=== PATIENT | male | born 1965 | race Caucasian/White ===

== ENCOUNTER 2022-09-10 07:52 | Day surgery (SDC) | payer SELFPAY ==
[2022-09-09 11:14] VITALS: BMI 28.2
--- NOTE | 2022-09-09 11:37 | ANES.PREANE2 ---
Pre-Anesthetic Assessment Height/Weight: Height 1.88 m Weight 99.79 kg Operation Date: 09/10/22 09:50 Proposed Procedures p left shoulder rotator cuff repair:84429,M75.102(Left) - David Hay DO Familial anesthetic complications: None Was Beta Angely taken within 24 hours: N/A Was Clonidine taken within 24 hours: N/A Last intake: > 8 hrs Social No alcohol and No tobacco Exam alert, oriented x 3, clear to auscultation bilaterally and regular rate & rhythm Airway Mallampati: Class III Dentition: full GI Gastroesophageal Reflux Disease Metabolic Hyperlipidemia Anesthetic Plan ASA status: 2 Anesthesia: General and Regional (specify below) Medications/Allergies Home Medications Medication Instructions Recorded Confirmed Last Taken Type omeprazole 20 mg capsule,delayed 20 mg PO DAILY 08/11/22 09/09/22 1 Day Ago History release ~09/08/22 lovastatin 20 mg tablet 20 mg PO DAILY 09/09/22 09/09/22 1 Day Ago History ~09/08/22 Allergies Allergy/AdvReac Type Severity Reaction Status Date / Time morphine Allergy ADR-Fatigue Verified 09/09/22 11:10 d Data Anesthesia Cardiac Studies: No Data to Display
[2022-09-10] VITALS (10 sets, daily range): BP systolic 82–122; BP diastolic 46–77; PULSE 54–76; RESP 16–18; TEMP 36.1–36.5; O2SAT 96–100
[2022-09-10] MEDS: sodium chloride 0.9% 1,000 ML 30 ML IV (08:16)
[2022-09-10] MEDS: ketorolac 30 mg/mL INJ IVP (08:16)
[2022-09-10] MEDS: acetaminophen 1,000 MG/100 ML PIGGYBACK 400 MG IV (08:17)
--- NOTE | 2022-09-10 08:42 | ANES.PAUD2 ---
Pre-Anesthetic Update Pre-Anesthetic Assessment: Date of Surgery/Procedure: 09/10/22 Preop Diagnosis: Left shoulder, AC joint arthritis, subacromial impingement, biceps tendinit Proposed Procedure: Operation Date: 09/10/22 09:20 Proposed Procedures p Shoulder Arthroscopy(Left) - David Otero, DO s Subacromial Decompression(Left) - David Satnam, DO s AC Joint Resection(Left) - David Satnam, DO s left shoulder diagnostic and surgical arthroscopy with rotator cuff repair, subacromial decompression,AC joint resection,possible biceps tenotomy,versus tenodesis,possible subscapularis repair:[id number],m75.102(Left) - David Hay, DO Any changes to Pre-Anesthetic Assessment?: No Last Intake: Intake Last Liquid Date 09/09/22 Last Liquid Time 22:30 Last Solid Date 09/09/22 Last Solid Time 22:30 Vitals: Temperature 97.0 F L 09/10/22 08:09 Temperature Source Temporal Artery S can 09/10/22 08:09 Pulse Rate 76 09/10/22 08:09 Respiratory Rate 16 09/10/22 08:09 Blood Pressure 122/77 09/10/22 08:09 Blood Pressure Vida n 92 09/10/22 08:09 Pulse Oximetry 98 09/10/22 08:09 Oxygen Delivery Me thod Room Air 09/10/22 08:11 Exam: Pre-Anes Outpt Exam: alert, oriented x 3, clear to auscultation bilaterally and regular rate & rhythm Cardiac Studies: No Data to Display
--- NOTE | 2022-09-10 08:42 | ANES.PROC ---
Anesthesia Procedures Procedure/Date: 09/10/22 Nerve Block ^: Nerve Block 1: Main Anesthesia: general anesthesia Time Out Performed: Yes Consent: requested by attending/covering physician, from patient, from other and risks and benefits reviewed Nerve block location: interscalene (L) Anesthesia monitors applied: pulse oximetry, EKG, BP cuff and oxygen Nerve block position: semi sitting Anesthetic Used: ropivicaine 0.5% (20 ml) and with decadron (3 mg) Ultrasound used to: recognize landmarks, visualize and ID brachial plexus, in supraclavicular region and visualize and ID interscalene groove Nerve Stimulator Used?: No Interscalene/Femoral BLK: 2 stimuplex 22 g needle used for position and inplane approach, visualize local anesthetic spread and no vascular puncture identified Patient Tolerated Procedure: well and no complications Complications: none Epidural: Epidural position: sitting
--- NOTE | 2022-09-10 10:27 | W.PM.OPSUD ---
Surgery/Procedure H&P Update DATE OF PROCEDURE: September 10, 2022 DATE H&P PERFORMED: 08/11/22 CHANGES TO PREVIOUS DOCUMENTATION: None. No changes in HPI from previous office visit on 08/11/2022. Reviewing of patient's MRI again patient has a left shoulder rotator cuff tear of the supraspinatus tendon as well as a potential partial tear of the subscapularis tendon. He has AC joint arthritis as well. He does have findings consistent with biceps tendinitis. We talked about the ins and outs of the procedure this point time he elects to proceed with surgical intervention. All questions answered. Plan to proceed with left shoulder diagnostic and surgical arthroscopy with rotator cuff repair, subacromial decompression, AC joint resection, biceps tenotomy versus tenodesis, possible subscapularis repair PREOP DIAGNOSIS: Left shoulder, AC joint arthritis, subacromial impingement, biceps tendinit PRIMARY INDICATION FOR PROCEDURE: Left shoulder AC joint arthritis, subacromial impingement, biceps tendinitis, rotator cuff tear PLANNED PROCEDURE: Operation Date: 09/10/22 09:20 Proposed Procedures p Shoulder Arthroscopy(Left) - David Isabella, DO s Subacromial Decompression(Left) - David Isabella, DO s AC Joint Resection(Left) - David Isabella, DO s left shoulder diagnostic and surgical arthroscopy with rotator cuff repair, subacromial decompression,AC joint resection,possible biceps tenotomy,versus tenodesis,possible subscapularis repair:[id number],m75.102(Left) - David Gamezatt, DO
[2022-09-10] MEDS: ceFAZolin 2,000 MG in sodium chloride 0.9% (plus) 50 ML 100 MG IV (10:36)
[2022-09-10] MEDS: EPINEPHrine 1 mg/mL INJ 2 MG XX (12:05)
--- NOTE | 2022-09-10 14:40 | P.OP_ITS ---
Brief Operative Note Date of procedure: 09/10/22 Pre-op diagnosis: Left shoulder rotator cuff tear, subscapularis tear, bicep t endon tear, lab Post-op diagnosis: same (Labral tearing, AC joint arthritis, subacromial impingement) Procedure Done: 1. Left shoulder diagnostic and surgical arthroscopy labral debridement 2. left shoulder diagnostic and surgical arthroscopy biceps tenodesis 3. Left shoulder diagnostic and surgical arthroscopy subscapularis tendon rep air 4. Left shoulder diagnostic and surgical arthroscopy subacromial decompression (bursectomy and acromioplasty) 5. Left shoulder diagnostic and surgical arthroscopy AC joint resection (distal clavicle excision) 6. Left shoulder diagnostic and surgical arthroscopy with rotator cuff tendon repair (large) Surgeon: David Hay Estimated blood loss (mL): 20 Complications: None Post-op Plan: Patient taken to PACU in stable condition recovering well. Will receive appropriate discharge instructions as well as pain medication postoperatively. Patient to follow-up postoperative rotator cuff repair protocol. Nonweightbearing to left upper extremity. Sling with abduction pillow on in place. Patient received regional anesthesia. We will follow-up in the orthopedic office in 2 weeks with plan for suture removal. Patient understands agrees with current plan. All questions answered. Condition: stable Disposition: same day Coding Level of Care Code Acute Code for Chg Fwd
--- NOTE | 2022-09-10 14:40 | P.OP_ITS ---
Operative Report Date of procedure: September 10, 2022 Pre-op diagnosis: Preop Diagnosis Left shoulder, AC joint arthritis, subacromial impingement, biceps tendinit Procedure: Post-op diagnosis: Left shoulder labral tear Left shoulder biceps tendon tear Left shoulder subscapularis tear Left shoulder rotator cuff tear large Left shoulder AC joint arthritis Left shoulder subacromial bursitis Procedure done: Left shoulder diagnostic and surgical arthroscopy with arthroscopic rotator cuff repair (large) Left shoulder diagnostic and surgical arthroscopy biceps tenodesis Left shoulder diagnostic and surgical arthroscopy labral debridement Left shoulder diagnostic and surgical arthroscopy acromioclavicular joint resection Left shoulder diagnostic and surgical arthroscopy subacromial decompression (acromioplasty and bursectomy) Left shoulder diagnostic and surgical arthroscopy with subscapularis tendon repair Surgeon: David Hay DO Estimated blood loss: 20 mL IV fluids: See anesthesia record Complications: None Condition: stable Disposition: same day Brief History: Patient been seen and worked up in the outpatient setting for left shoulder pain.? Pt had an MRI which showed rotator cuff tendon tear of the supraspinatus tendon as well as 30 to 50% tear of the subscapularis tendon. Biceps tendon pathology as well as AC joint arthritis. Patient's failed conservative treatment and has substantial weakness.? We talked about treatment options far as nonoperative and operative intervention..? We talked about risk benefits complication alternatives surgical nonsurgical treatment options.? Understanding risk of surgery he agrees to proceed with surgical intervention.? All questions have been answered at this time.? Patient elects proceed with surgery and consent obtained in office. Procedure: Patient seen evaluated in the preoperative holding area.? Consent reviewed and signed with patient.? Once again reviewed patient's MRI results as well as her planned surgical intervention.? Correct extremity marked.? Patient seen evaluated by anesthesia department received regional anesthesia.? Once ready for surgery was taken back to the operative suite.? Patient then subsequently underwent anesthesia per the anesthesia department was transported onto the OR table.? Patient was then placed into a lateral decubitus position with a beanbag and was appropriately secured to the bed.? All bony prominences well-padded.? Patient then had the left upper extremity was then prepped and draped in standard orthopedic fashion.? Patient received appropriate preoperative antib iotics.? Final timeout performed. The left upper extremity was then held in hanging from traction utilizing sterile technique.? Next started with standard diagnostic and surgical arthroscopy with posterior portal position introduced arthroscope into the glenohumeral joint.? Visualized the glenohumeral joint I then introduced a spinal needle within the rotator cuff interval to confirm appropriate anterior portal placement.? Once this was confirmed I then made my small incision and then introduced my arthroscopic shaver into the glenohumeral joint.? After thorough debridement was clearly evident patient had a significant erythema as well as positive liftoff sign of the biceps anchor and biceps tendon tear as it was pulled within the joint.? 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 Next I evaluated the subscapularis tendon which upper border 30-50% tear that would be amenable for repair of an upper border subscapularis tendon repair plan was to incorporate these 2 sutures of the biceps tenodesis and subscapularis tendon repair and do a single 475 swivel lock at the top of the intertubercular groove off of the upper border of the subscapularis tendon. As a result the Arthrex purple cannula was established anteriorly. I then utilizing thermal wand to open the rotator cuff interval. Once this was completed I then utilized Arthrex his loop and tack biceps tenodesis kit I subsequently passed the loop and tack through the biceps tendon creating a l uggage tag suture and then last of this around 2 times around the biceps tendon I then introduced the thermal wand and this was then subsequently tenotomized. I then with the thermal wand performed a labral debridement of circumferential labral tearing that was noted. Next I utilized a blunt probe to free up the adhesions off the anterior aspect of the subscapularis tendon off of the capsule so I had only subtle visualization of just the subscapularis tendon for appropriate passing of the scorpion suture passer. Once I was satisfied with my releases and evaluation of the upper border the subscapularis tendon I then subsequently utilized a fiber link suture this was then subsequently passed through luggage tag fashion and then an additional 2 passes was made through the upper border the subscapularis tendon to have appropriate control of the upper border subscapularis tendon repair. These were then both pulled out of the passport cannula loaded onto 475 swivel lock. Passport cannula was then advanced into appropriate position I then utilized a punch to appropriate depth and then under appropriate tension advance the 475 swivel lock into the punch hole maintaining appropriate tension and had excellent fixation. This completed the biceps tenodesis and upper border subscapularis tendon repair. ? I then subsequently utilized a a arthroscopic shaver and thermal wand to perf orm a labral debridement.? This point time I then visualized the glenohumeral joint.? The glenohumeral joint was found to have grade I chondromalacia throughout.? Infrapatellar pouch was free of loose bodies from viewing the posterior portal.? Next a visualized the rotator cuff superiorly and there was found to be a large tear of the supraspinatus tendon retracted to the glenohumeral joint at the medial aspect of the humeral head.? I utilized a spinal needle to radha this location.?? This completed my work within the glenohumeral joint all fluid was suctioned free of the joint.? ?Next I reintroduced the arthroscope posteriorly.? And went to the subacromial space.? I established my lateral working portal at the site of which my spinal needle was marking of the rotator cuff tear.? Thermal wand was then introduced laterally and then I subsequently performed extensive bursectomy of the subacromial space. Utilizing shaver I then evaluated the large rotator cuff tendon tear. Given the excellent visualization of the rotator cuff tendon tear as well as to prevent repair after fluid distention after AC joint I elected to repair the rotator cuff tendon next prior to completion of subacromial decompression and AC joint resection. Tissue grasper was used to assess the rotator cuff this did have appropriate tissue excursion and would be amendable to repair. There was a delamination component of the tear as well. At this point in time introduced the arthroscopic shaver debrided the rotator cuff tendon to stable tissue. ?I debrided the edges as well as decorticated the footprint of the rotator cuff insertion with my arthroscopic shaver.? Next introduced thermal wand to identify and radha my appropriate position for my bone anchors.? Tear was large in size and at this point time would be accommodating for Arthrex speed bridge technique.? Once my footprint was appropriately decorticated and prepared I then subsequently utilized a spinal needle for an accessory portal to place my anchors for medial row.? Once I like my position a small incision was made and a punch was then placed in appropriate position right off the articular margin first with my anterior and the next with my posterior anchors these were loaded with 2 Arthrex suture tapes.? These were impacted to appropriate depth.? Next these were sequentially withdrawn through the lateral portal and loaded on an Arthrex scorpion and were passed sequentially from anterior to posterior and pulled out the anterior portal.? Direct visualization was made to note that the each of the sutures did capture the appropriate delaminated piece to accommodate for appropriate repair of this as well. Next I then grabbed both sutures 1 and 3 in these were loaded into an Arthrex 4.75 swivel lock.? I then identified my appropriate position from the lateral anterior row anchor these were loaded punch was then placed and under appropriate tension free placement I advance my 4.75 Arthrex swivel lock.? Next I then loaded the sutures 2 and 4 into a Arthrex 4.75 swivel lock and subsequently utilizing my punch placed my lateral row posterior anchor in appropriate position being sure to not over tension the rotator cuff and lay this appropriately on its anatomic footprint.? Swivel lock was then advanced into appropriate position and had excellent fixation.? All excess suture was removed with arthroscopic cutter.? This completed my Arthrex speed bridge double row repair.? I then switched the arthroscope to the lateral portal to confirm this tension-free repair.? I took the shoulder through range of motion and the rotator cuff repair was stable and moved as a unit. Patient had a large anterior bone spur. Arthroscopic shaver was used to perform acromioplasty. At this point time I proceeded with my AC joint resection thermal wand was used and track to the anterior edge of the acromion and then tracked all the way to the AC joint.? Once identified the AC joint this was very arthritic in nature.? Thermal wand was placed anteriorly to establish appropriate plane for AC joint resection.? Once appropriate margins and anterior inferior and anterior capsule was released I then introduced arthroscopic shaver and a bur and performed AC joint resection of both the acromion to coplane at the AC joint and a distal clavicle resection was then performed totaling 1 cm in size and was confirmed.? This completed my AC joint resection I then introduced the arthroscopic shaver posteriorly to complete my subacromial decompression appropriate complaining all the way up to the lateral edge of the acromion.? This completed the surgery.? All fluid was suctioned from the shoulder.? All instruments were removed.? The lateral incision was then closed with 2-0 Vicryl and nylon stitches.? As well as the portal sites closed with portal nylon stitches.? Xeroform 4 x 4's ABD and tape was then applied to the left shoulder and was placed into a shoulder abduction pillow sling for rotator cuff repair.? Patient was then awakened from anesthesia and then taken back to PACU in stable condition.? Patient tolerated procedure without any issues. Disposition: Patient taken back in stable condition recovering well.? Dressings on in place clean dry and intact.? Will be nonweightbearing to the left upper extremity.? Follow rotator cuff repair protocol.? Patient to follow-up with me in the office in 2 weeks.? Patient will receive appropriate discharge instruction as well as pain medication postoperatively.? All questions answered.? We will contact the office for any questions or concerns.
--- NOTE | 2022-09-10 14:40 | PM.PACU ---
PACU note Narrative: Taken to PACU in stable condition pain controlled. Dressing on in place clean dry and intact. Patient received regional anesthesia unable to assess motor or sensory. Distal pulses are palpable hand warm well-perfused dressing clean dry and intact. Exam: awake Disposition: discharged
--- NOTE | 2022-09-10 16:20 | ANE.PACU2 ---
Inpatient post-anesthesia follow up: Airway intact: Yes Vital signs: Temperature 97.7 F Pulse Rate 58 Respiratory Rate 17 Blood Pressure 103/68 Pulse Oximetry 100 Oxygen Delivery Me thod Room Air Oxygen Flow Rate 6 Fraction of Inspir ed Oxygen Hydration adequate: Yes Nausea and vomiting: No Pain level: 1 Mental status: Baseline
== END 2022-09-10 17:07 | disposition home or self-care (01) ==
PROVIDERS: PCP Nurse Practitioner Family; Visit Provider Student in an Organized Health Care Education/Training Program
PROC: (CPT 29805; principal; 2022-09-10 09:00)
PROC: (CPT 29826; 2022-09-10 09:00)
PROC: 0RSH0ZZ Reposition Left Acromioclavicular Joint, Open Approach (ICD-10-PCS; CPT 29824; 2022-09-10 09:00)
PROC: (CPT 23405; 2022-09-10 09:00)
DX: M19.012 Primary osteoarthritis, left shoulder (principal); M75.102 Unspecified rotator cuff tear or rupture of left shoulder, not specified as traumatic; M75.42 Impingement syndrome of left shoulder; M75.22 Bicipital tendinitis, left shoulder; K21.9 Gastro-esophageal reflux disease without esophagitis; E78.5 Hyperlipidemia, unspecified
CPT/HCPCS: 29824; 29826; 29827; 29828; C1713; J0131; J0171; J0690; J1100; J1885; J2370; J2405; J2704; J2710; J2795; J3010; J3490; J7030

== ENCOUNTER 2022-10-01 06:00 | Outpatient (RCR) | payer SELFPAY | END 2022-10-03 23:59 | disposition home or self-care (01) | LOC: MPT 06:00 | PROVIDERS: Visit Provider Student in an Organized Health Care Education/Training Program | DX: Z47.89 Encounter for other orthopedic aftercare (principal) | CPT/HCPCS: 97110; 97161 ==

== ENCOUNTER 2022-10-04 06:00 | Outpatient (RCR) | payer SELFPAY | END 2022-11-03 23:59 | disposition home or self-care (01) | LOC: MPT 06:00 | PROVIDERS: Visit Provider Student in an Organized Health Care Education/Training Program | DX: Z47.89 Encounter for other orthopedic aftercare (principal) | CPT/HCPCS: 97110; 97140; 97530; G0283 ==

== ENCOUNTER 2022-11-04 06:00 | Outpatient (RCR) | payer SELFPAY | END 2022-12-04 23:59 | disposition home or self-care (01) | LOC: MPT 06:00 | PROVIDERS: Visit Provider Student in an Organized Health Care Education/Training Program | DX: Z47.89 Encounter for other orthopedic aftercare (principal) | CPT/HCPCS: 97110; 97140; 97530; G0283 ==

== ENCOUNTER 2022-12-05 06:00 | Outpatient (RCR) | payer SELFPAY | END 2023-01-03 23:59 | disposition home or self-care (01) | LOC: MPT 06:00 | PROVIDERS: Visit Provider Student in an Organized Health Care Education/Training Program | DX: Z47.89 Encounter for other orthopedic aftercare (principal) | CPT/HCPCS: 97110; G0283 ==

== ENCOUNTER → 2023-02-13 09:26 | Outpatient (BNVA) | payer SELFPAY | PROVIDERS: Visit Provider Student in an Organized Health Care Education/Training Program | DX: M25.511 Pain in right shoulder (principal); Z98.890 Other specified postprocedural states; M75.21 Bicipital tendinitis, right shoulder | CPT/HCPCS: 73030 ==

== ENCOUNTER 2023-12-11 09:34 | Inpatient (IN) | payer SELFPAY ==
[2023-12-11] VITALS (12 sets, daily range): BP systolic 101–137; BP diastolic 62–80; PULSE 68–88; RESP 16–20; TEMP 36.8–37.2; O2SAT 95–99; BMI 28.2
[2023-12-11 09:47] LABS: Charge for UA Resulting for Rev
--- NOTE | 2023-12-11 09:48 | ED_ITS ---
HPI - Abdominal Pain 2 General: Chief Complaint: Abdominal Pain Stated Complaint: RT abd pain Time Seen by Provider: 12/11/23 09:36 Source: patient and family Mode of arrival: ambulatory Limitations: no limitations History of Present Illness: Patient is a nice 58-year-old male presents to ED today along with his for evaluation of lower abdominal pain. 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 He states that the evening and into today pain has progressively worsened. He has not noticed any changes to his bowel movements. No urinary complaints. No flank pain. Previous abdominal surgeries include a cholecystectomy. He does have one previous history of pancreatitis that they thought was medication induced. He does not drink alcohol. He has not had any vomiting or fevers. MD elicited complaint: abdominal pain Pertinent past history: none Onset (ago): day(s) Pain Consistency: constant Location: RLQ Severity: severe Radiation: none Migration to: no migration Exacerbating factors: movement and other (palpation) Relieving factors: nothing Associated Symptoms: Denies change in bowel habits, chills, diarrhea, dysuria, fever(s), hematochezia, melena, nausea and vomiting Related Data Home Medications Medication Instructions Recorded Confirmed omeprazole 20 mg capsule,delayed 20 mg PO DAILY 08/11/22 12/11/23 release lovastatin 20 mg tablet 20 mg PO DAILY 09/09/22 12/11/23 acetaminophen 500 mg tablet 1,000 mg PO Q6H PRN Pain 12/11/23 12/11/23 naproxen 500 mg tablet 500 mg PO BID 12/11/23 12/11/23 pseudoephedrine HCl 120 mg 120 mg PO Q12H PRN Congestion 12/11/23 12/11/23 tablet,extended release sildenafil 100 mg tablet 50 - 100 mg PO DAILY PRN Erectile 12/11/23 12/11/23 Dysfunction terbinafine HCl 250 mg tablet 250 mg PO DAILY 12/11/23 12/11/23 Allergies Allergy/AdvReac Type Severity Reaction Status Date / Time morphine Allergy ADR-Fatigue Verified 02/13/23 09:33 d Review of Systems 2 Const: Denies: fever(s), chills, body aches, fatigue or malaise Card: Denies: chest pain Resp: Denies: dyspnea GI: Reports: abdominal pain; Denies: nausea, vomiting, diarrhea, change in bowel habits, hematochezia or melena : Denies: flank pain, difficulty urinating, dysuria, urinary frequency, urinary urgency or urinary hesitancy Musc: Denies: joint pain Skin/Breast: Denies: rash Neuro: Denies: headache(s) or dizziness PFSH ED 2 PFSH: Social History Smoking and tobacco/nicotine status: never used tobacco/nicotine Alcohol intake: current Alcohol intake frequency: holidays/special occasions only Physical Exam 2 Const: COMMON NORMALS: average body habitus, patient oriented x3, no limitations, healthy appearing, alert and well nourished GENERAL APPEARANCE: cooperative and in distress (appears uncomfortable secondary to pain) O RIENTATION/CONSCIOUSNESS: Yes awake, Yes oriented to person, Yes oriented to place and Yes oriented to time Eye: COMMON NORMALS: no scleral icterus Chest: COMMONS NORMALS: normal inspection of the chest and normal palpation of entire chest wall Resp: COMMON NORMALS: normal respiratory effort and clear to auscultation bilaterally AUSCULTATION: clear to auscultation bilaterally Cardio: COMMON NORMALS: regular rate and regular rhythm RATE: regular rate RHYTHM: regular rhythm GI: COMMON NORMALS: Normal to inspection, nondistended, normoactive bowel sounds present, Soft to palpation, No hepatosplenomegaly present and no masses INSPECTION: Yes normal to inspection AUSCULTATION: Yes normoactive bowel sounds PALPATION: Yes Soft to palpation, Yes Tenderness to palpation present (GI) (throughout lower abdomen R>L), Yes Guarding due to palpation present (GI), No Rigid due to palpation and Yes No hepatosplenomegaly present : COMMON NORMALS: Yes no CVA tenderness BLADDER/KIDNEY EXAM: Yes no CVA tenderness Back/Pelvis: COMMON NORMALS: no CVA tenderness and thoracic and lumbar spine normal to inspection Extremity: GENERAL: Yes normal exam except as noted Neuro: GERA COMA SCALE: document GCS findings [place] coma scale eye opening: Spontaneous [place] coma scale verbal response: Orientated [place] coma scale motor response: Obey commands [place] coma scale total score: 15 COMMON NORMALS: patient oriented x3, moves all extremities, no focal motor deficits, no sensory deficits noted and gait normal SENSORIUM/ORIENTATION: Yes alert, Yes oriented to person, Yes oriented to place and Yes oriented to time Skin: COMMON NORMALS: no rashes or lesions noted GENERAL SKIN EXAM: no rashes or lesions noted Course 2 Consultations: Consultation #1: Dr. Rand-agrees with IV fluids, NPO, Zosyn and he will consult on patient Consultation #2: Dr. Rojas-accepts hospitalization Vital Signs: Vital signs: Vital Signs Temperature 98.7 F 12/11/23 09:56 Pulse Rate 77 12/11/23 09:56 Respiratory Rate 18 12/11/23 09:56 Blood Pressure 135/79 12/11/23 09:56 Pulse Oximetry 96 12/11/23 09:56 Oxygen Delivery Me thod Room Air 12/11/23 09:56 MDM - Abdominal Pain Medical Decision Making Patient is a very nice 58-year-old male here for progressively worsening lower abdominal pain since yesterday. He was found to have acute sigmoid diverticulitis with perforation. He also was found to have a small bowel stricture. Have spoken with general surgeon, Dr. Rand who has reviewed CT imaging. Free air is contained at this time. He is requesting IV fluids, Zosyn, NPO, and admit to medicine. Spoke to Dr. Rojas who will accept hospitalization. Lab Data 12/11/23 09:53 12/11/23 09:53 Labs/Radiology: Radiology Impressions Abdomen/Pelvis CT 12/11/23 09:55 IMPRESSION: 1. Acute distal descending colon and sigmoid diverticulitis with perforation. There are numerous extraluminal foci of air contained within the fat surrounding the sigmoid colon. No abscess at this time. Significant pericolonic fat stranding and inflammation. 2. Additional small bowel stricture in the mid jejunum with spiculation. This will need to be further evaluated for possible neoplasm or inflammatory stricture. If this is not evaluated surgically recommend follow-up CT with IV and oral contrast in 2 to 3 months. 3. Fluid collections associated with the pancreatic tail and subcapsular spleen. 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 No adjacent inflammation. No prior studies documenting pancreatitis. These can also be reevaluated in 2 to 3-month follow-up CT for the jejunal stricture. 4. Prior cholecystectomy. Laboratory Results WBC 13.25 10^3/uL (3.29-11.43) H 12/11/23 09:53 RBC 4.31 10^6/uL (3.85-5.65) 12/11/23 09:53 Hgb 13.00 g/dL (11.27-16.99) 12/11/23 09:53 Hct 39.2 % (37-53) 12/11/23 09:53 MCV 91.0 fl (82-101) 12/11/23 09:53 MCH 30.2 pg (27-33) 12/11/23 09:53 MCHC 33.2 g/dL (30-55) 12/11/23 09:53 RDW 13.4 % (12.1-15.1) 12/11/23 09:53 Plt Count 178 10^3/cmm (157-399) 12/11/23 09:53 MPV 11.1 fL (7.4-10.4) H 12/11/23 09:53 Neut % (Auto) 78.3 % 12/11/23 09:53 Lymph % (Auto) 8.5 % 12/11/23 09:53 [place] % (Auto) 11.4 % 12/11/23 09:53 Eos % (Auto) 1.4 % 12/11/23 09:53 Baso % (Auto) 0.2 % 12/11/23 09:53 Neut # (Auto) 10.37 10^3/uL (1.8-7.7) H 12/11/23 09:53 Lymph # (Auto) 1.1 10^3/uL (0.8-4.8) 12/11/23 09:53 [place] # (Auto) 1.5 10^3/uL (0.2-0.9) H 12/11/23 09:53 Eos # (Auto) 0.2 10^3/uL (0.0-0.8) 12/11/23 09:53 Baso # (Auto) 0.0 10^3/uL (0.0-0.1) 12/11/23 09:53 Nucleated RBC % (auto) 0 % 12/11/23 09:53 Nucleated RBCs # 0.0 /100WBC 12/11/23 09:53 Sodium 138 mmol/L (136-145) 12/11/23 09:53 Potassium 4.2 mmol/L (3.5-5.1) 12/11/23 09:53 Chloride 106 mmol/L (98-107) 12/11/23 09:53 Carbon Dioxide 20 mmol/L (22-29) L 12/11/23 09:53 Anion Gap 16.2 (5-19) 12/11/23 09:53 BUN 21 mg/dL (8-23) 12/11/23 09:53 Creatinine 1.0 mg/dL (0.7-1.2) 12/11/23 09:53 GFR Calculation 76.2 mL/min (90-130) L 12/11/23 09:53 Glucose 117 mg/dL (65-115) H 12/11/23 09:53 Calculated Osmolality 290 mOsm/kg (285-295) 12/11/23 09:53 Calcium 8.2 mg/dL (8.5-10.5) L 12/11/23 09:53 Total Bilirubin 1.1 mg/dL (0.15-1.2) 12/11/23 09:53 AST 21 U/L (0-40) 12/11/23 09:53 ALT 20 U/L (0-41) 12/11/23 09:53 Alkaline Phosphatase 95 U/L (40-130) 12/11/23 09:53 Total Protein 6.4 g/dL (6.6-8.7) L 12/11/23 09:53 Albumin 3.7 g/dL (3.5-5.2) 12/11/23 09:53 Globulin 2.7 g/dL (1.3-4.6) 12/11/23 09:53 Lipase 20 U/L (13-60) 12/11/23 09:53 Urine Color Dark yellow (Yellow) A 12/11/23 09:44 Urine Appearance Clear (CLEAR) 12/11/23 09:44 Urine pH 7.0 (5-7) 12/11/23 09:44 Ur Specific [place] 1.036 (1.005-1.030) H 12/11/23 09:44 Urine Protein 1+ (Negative) A 12/11/23 09:44 Urine Glucose (UA) Negative (Normal) 12/11/23 09:44 Urine Ketones Trace (Negative) 12/11/23 09:44 Urine Blood Negative (Negative) 12/11/23 09:44 Urine Nitrate Negative (Negative) 12/11/23 09:44 Urine Bilirubin 1+ (Negative) H 12/11/23 09:44 Urine Urobilinogen 1.0 mg/dL (Negative) 12/11/23 09:44 Ur Leukocyte Esterase Trace (Negative) A 12/11/23 09:44 Urine RBC 5-10 /hpf (0-2) H 12/11/23 09:44 Urine WBC Rare /hpf (0-5) 12/11/23 09:44 Ur Squamous Epith Cells 0-4 /hpf (0-5) H 12/11/23 09:44 Amorphous Sediment Not Reportable 12/11/23 09:44 Urine Bacteria R /hpf (NONE) 12/11/23 09:44 All radiology interpretation(s) finalized by discharge Discharge Plan Discharge Patient Disposition: Admitted As Inpatient Clinical Impression: Diverticulitis of colon with perforation Condition: Stable Coding Level of Care Code ED Instructor Decorating for Alicia Oswald
[2023-12-11 09:54] LABS: Bilirubin Urine 1+ (Negative); Blood Urine Negative (Negative); Glucose Urine UA Negative (Normal); Ketones Urine Trace (Negative); Leukocyte Esterase Urine Trace (Negative); Nitrate Urine Negative (Negative); Protein Urine 1+ (Negative); Urine Appearance Clear (CLEAR); Urine Color Dark Yellow (Yellow)
--- NOTE | 2023-12-11 09:55 | CT_ITS ---
WS: [id number] CT ABDOMEN AND PELVIS WITH CONTRAST HISTORY: lower abdominal pain TECHNIQUE: Imaging performed of the abdomen and pelvis with IV contrast. Single phase imaging of the abdomen. Coronal and sagittal reformats are submitted. All CT scans at [facility] use at [address] one of these dose optimization techniques: automated exposure control; mA and/or kV adjustment per patient size (includes targeted exams where dose is matched to clinical indication); or iterative re construction. IV CONTRAST: Omnipaque 350; 100 mL IV. Oral contrast: No DLP: 924.25 mGy.cm COMPARISON: None available. Lower thorax: Lung bases are clear. Heart is normal size. No hiatal hernia. Liver/biliary system: Normal liver. There are scattered low-attenuation nodules throughout the liver which are too small to characterize but probably representing cysts. Normal portal vein. No bile duct dilatation. Gallbladder: Prior cholecystectomy. Pancreas: Pancreas is normal size. No pancreatic duct dilatation. Small complex fluid collections are noted adjacent to the pancreatic tail. The largest is 4.0 x 2.0 cm. Spleen: Normal size spleen. No mass or infarct. Small fluid collection along the posterior spleen aj sures 1.6 x 1.3 cm. Adrenal glands: Normal. Right kidney: Normal size kidney. 1.3 cm cyst lower pole. There is a small exophytic 1.1 cm cyst from the lower pole. Left kidney: Mild perinephric stranding. A few cortical too small to characterize hypodensities. Aorta: Mild atherosclerosis with no aneurysm. Lymphadenopathy: None. Free fluid: No free fluid. GI tract: Stomach is normally distended. Very subtle area of stricture and spiculation in the mid LEF T abdomen involving the small bowel will need to be further evaluated. There is no obstruction at thi s time. There is a significant inflammatory process centered in the pelvis. Inflammatory process is surroundi ng the distal descending colon and the sigmoid. There is marked inflammation and free air present. Th is is consistent with focal perforation related to diverticulitis most likely. There is no abscess at this time. The free air is contained within the fat surrounding the sigmoid. Appendix is normal. Abdominal wall: Fat containing umbilical hernia. Pelvis: Bilateral inguinal canals are patent containing fat. Mild prostate enlargement. Bones: Mild degenerative changes in the spine. CT/CT abdomen pelvis w con* [id number] IMPRESSION: 1. Acute distal descending colon and sigmoid diverticulitis with perforation. There are numerous extraluminal foci of air contained within the fat surroundin g the sigmoid colon. No abscess at this time. Significant pericolonic fat stran ding and inflammation. 2. Additional small bowel stricture in the mid jejunum with spiculation. This will need to be further evaluated for possible neoplasm or inflammatory strictu re. If this is not evaluated surgically recommend follow-up CT with IV and oral contrast in 2 to 3 months. 3. Fluid collections associated with the pancreatic tail and subcapsular splee n. 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 No adjacent inflammation. No prior studies documenting pancreatitis. These can al so be reevaluated in 2 to 3-month follow-up CT for the jejunal stricture. 4. Prior cholecystectomy.
[2023-12-11 10:02] LABS: Basophils % 0.2 %; Eosinophils # 0.2 10^3/uL (0.0-0.8); Eosinophils % 1.4 %; Hematocrit 39.2 % (37-53); Lymphocytes # 1.1 10^3/uL (0.8-4.8); Lymphocytes % 8.5 %; Mean Corpuscular HGB Conc 33.2 g/dL (30-55); Mean Corpuscular Hemoglobin 30.2 pg (27-33); Mean Platelet Volume 11.1 fL (7.4-10.4); Monocytes # 1.5 10^3/uL (0.2-0.9); Monocytes % 11.4 %; Neutrophils # 10.37 10^3/uL (1.8-7.7); Neutrophils % 78.3 %; Nucleated Red Blood Cells % 0 %; Platelet Count 178 10^3/cmm (157-399); Red Blood Count 4.31 10^6/uL (3.85-5.65); Red Cell Distribution Width 13.4 % (12.1-15.1); White Blood Count 13.25 10^3/uL (3.29-11.43)
[2023-12-11 10:03] LABS: Bacteria Urine R /hpf; Specific Gravity, Urine 1.036 (1.005-1.030); Squamous Epithelial Cell Urine 0-4 /hpf (0-5); UA Manual Slide Review YES; WBC Urine RARE /hpf (0-5)
[2023-12-11 10:04] LABS: Add Urine Culture? No
[2023-12-11] MEDS: ondansetron 2 mg/ML SDV 2 mL 4 MG IVP (10:04)
[2023-12-11] MEDS: ketorolac 60 mg/2 mL INJ 30 MG IVP (10:04)
[2023-12-11] MEDS: sodium chloride 0.9% 1,000 ML 999 ML IV (10:06)
[2023-12-11 10:18] LABS: Alanine Aminotransferase 20 U/L (0-41); Albumin Level 3.7 g/dL (3.5-5.2); Alkaline Phosphatase 95 U/L (40-130); Anion Gap 16.2 (5-19); Aspartate Amino Transferase 21 U/L (0-40); Blood Urea Nitrogen 21 mg/dL (8-23); Calcium 8.2 mg/dL (8.5-10.5); Carbon Dioxide 20 mmol/L (22-29); Chloride 106 mmol/L (98-107); Creatinine Clr Calc Pharmacy 99.1511; Globulin 2.7 g/dL (1.3-4.6); Glomerular Filtration Rate 76.2 mL/min (90-130); Glucose 117 mg/dL (65-115); Lipase 20 U/L (13-60); Osmolality Calculated 290 mOsm/kg (285-295); Potassium 4.2 mmol/L (3.5-5.1); Sodium 138 mmol/L (136-145); Total Bilirubin 1.1 mg/dL (0.15-1.2); Total Protein 6.4 g/dL (6.6-8.7)
[2023-12-11] MEDS: iohexol 350 mg/mL 500 mL Btl (per mL) IV (11:11)
--- NOTE | 2023-12-11 11:23 | PC.PHAR ---
Spouse has current rx bottles in room. Pt did not take any meds this morning, only 1000mg of tylenol
--- NOTE | 2023-12-11 12:54 | P.HP_ITS ---
Providers/Chief Complaint 2 Primary Care Provider: AMI Krishnamurthy Chief Complaint: RT abd pain History of Present Illness Fortino Espino is a 58 year old male With past medical history of plantar fasciitis, GERD, chronic back pain, never smoker denies alcohol use, drug use presented to the hospital today with complaint of abdominal pain that has been going on since yesterday. 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 He has had a cholecystectomy in the past but no other abdominal surgeries. He states he has had diverticulitis in the past about 7 years ago, 1 episode. Medical patient medical issues. He has also had a history of 1 episode of pancreatitis. Denies nausea vomiting diarrhea constipation at this time. Workup in the ER revealed the followin. Acute distal descending colon and sigmoid diverticulitis with perforation. There are numerous extraluminal foci of air contained within the fat surrounding the sigmoid colon. No abscess at this time. Significant pericolonic fat stranding and inflammation. 2. Additional small bowel stricture in the mid jejunum with spiculation. This will need to be further evaluated for possible neoplasm or inflammatory stricture. If this is not evaluated surgically recommend follow-up CT with IV and oral contrast in 2 to 3 months. 3. Fluid collections associated with the pancreatic tail and subcapsular spleen. 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 No adjacent inflammation. No prior studies documenting pancreatitis. These can also be reevaluated in 2 to 3-month follow-up CT for the jejunal stricture. 4. Prior cholecystectomy. Medications/Allergies Home Medications Medication Instructions Recorded Confirmed Last Taken Type omeprazole 20 mg capsule,delayed 20 mg PO DAILY 08/11/22 12/11/23 12/10/23 History release lovastatin 20 mg tablet 20 mg PO DAILY 09/09/22 12/11/23 12/10/23 History acetaminophen 500 mg tablet 1,000 mg PO Q6H PRN Pain 12/11/23 12/11/23 12/11/23 History naproxen 500 mg tablet 500 mg PO BID 12/11/23 12/11/23 12/10/23 History pseudoephedrine HCl 120 mg 120 mg PO Q12H PRN Congestion 12/11/23 12/11/23 Unknown History tablet,extended release sildenafil 100 mg tablet 50 - 100 mg PO DAILY PRN Erectile 12/11/23 12/11/23 Unknown History Dysfunction terbinafine HCl 250 mg tablet 250 mg PO DAILY 12/11/23 12/11/23 12/10/23 History Allergies Allergy/AdvReac Type Severity Reaction Status Date / Time morphine Allergy ADR-Fatigue Verified 02/13/23 09:33 d PFSH Acute 2 PFSH: Social History Smoking and tobacco/nicotine status: never used tobacco/nicotine Alcohol intake: current Alcohol intake frequency: holidays/special occasions only Vitals/I&O/Wt Last Vital Signs Temp 98.7 F 12/11/23 09:56 Pulse 77 12/11/23 09:56 Resp 18 12/11/23 09:56 BP 135/79 12/11/23 09:56 Pulse Ox 96 12/11/23 09:56 O2 Del Method Room Air 12/11/23 09:56 Weight last 48 hrs Weight 99.79 kg Physical Exam 2 Narrative: General: Alert oriented x3, patient seen laying in bed appearing comfortable with friend at bedside. HEENT: Normocephalic, atraumatic, EOMI, breathing room air. Cardio: Regular rate rhythm, normal S1-S2, Respiratory: Good bilateral air entry, no wheezes no rhonchi appreciated GI: Abdomen soft, mildly tender to palpation around umbilicus, nondistended, bowel sounds + Behavior: Appropriate and cooperative Extremities: No edema bilateral extremity. Data 12/11/23 09:53 12/11/23 09:53 A&P Assessment and plan (1) History of pancreatitis: (2) Abnormal CT scan, small bowel: (3) Diverticulitis of colon with perforation: (4) Chronic GERD: Plan #Acute diverticulitis #GERD #Chronic back pain # Small bowel stricture #History of pancreatitis #Pancreatic tail fluid collections and subscapular spleen fluid collections - CT scan abdomen was done in the ER which shows acute distal descending colon and sigmoid diverticulitis with perforation. Numerous extraluminal foci of air contained within the fat surrounding the sigmoid colon no abscess at this time. Additional small bowel stricture in mid lesion with spiculation fluid collections associated with pancreatic tail and subscapular spleen. General surgery was contacted in the ER. Conservative management at this time. - Final consult note pending. ? Keep n.p.o. at this time ? Placed on Zosyn every 8 hours ? Low threshold to repeat imaging. ? Monitor for fever ? Check CBC CMP in a.m. ? Protonix 40 IV daily ? Dilaudid for pain. Patient is allergic to morphine. ? Colonoscopy recommended in 6 weeks with possible sigmoid resection. -Repeat imaging recommended by radiology for small bowel stricture and pancreatic tail fluid collections. Will await recommendations from general surgery regarding the above. Full code DVT prophylaxis: Heparin subcu twice daily Attestations 2 Medical Necessity Statement*: > 2 midnight stay for mgmt of acute diverticulitis Diagnoses History of pancreatitis Z87.[address] scan, small bowel R93.3 Diverticulitis of colon with perforation K57.20 Chronic GERD K21.9
[2023-12-11] MEDS: pantoprazole 40 mg SDV IVP (13:47)
[2023-12-11] MEDS: heparin 5,000 unit/mL INJ 1 mL 5000 UNIT SUBCUT (13:47)
[2023-12-11] MEDS: piperacillin-tazobactam 3.375 GM in sodium chloride 0.9% (plus) 50 ML IV ×2 (13:50→19:55)
[2023-12-11 14:43] LABS: Lactic Sepsis W/Reflex 1.3 mmol/L (0.5-2.2)
[2023-12-11] MEDS: sodium chloride 0.9% 1,000 ML 125 ML IV ×2 (15:12→23:15)
--- NOTE | 2023-12-11 16:30 | P.CONIM_ITS ---
Providers/Reason For Consult 2 Consulting Physician/Specialty*: Dr. Raúl Rand, DO/General Surgery Reason for Consult*: Complicated diverticulitis Attending Physician: Lata Rojas MD Primary Care Provider: AMI Krishnamurthy History of Present Illness History of Present Illness Fortino Espino is a 58 year old male who presented to the hospital with 1 day history of abdominal pain. He reports his abdominal pain started in the left lower quadrant but has now migrated to the periumbilical. The pain is sharp and constant and does not radiate. Palpation makes pain worse. Nothing makes pain better. He does have a history of diverticulitis requiring antibiotics 1 time in the past. His last colonoscopy was in 2017 and no polyps were seen at that time. A CT of the abdomen pelvis shows sigmoid diverticulitis with a contained microperforation. There is also some spiculation around a portion of small bowel but no bowel obstruction. CT also reveals likely pancreatic pseudocyst. He does have a history of pancreatitis. He does report that he is nauseous but denies any emesis. Denies any diarrhea and/or constipation. Denies any hematochezia and/or melena. Review of Systems 2 General: Reports: 10 or more systems reviewed and unremarkable except in HPI and below Medications/Allergies Home Medications Medication Instructions Recorded Confirmed Last Taken Type omeprazole 20 mg capsule,delayed 20 mg PO DAILY 08/11/22 12/11/23 12/10/23 History release lovastatin 20 mg tablet 20 mg PO DAILY 09/09/22 12/11/23 12/10/23 History acetaminophen 500 mg tablet 1,000 mg PO Q6H PRN Pain 12/11/23 12/11/23 12/11/23 History naproxen 500 mg tablet 500 mg PO BID 12/11/23 12/11/23 12/10/23 History pseudoephedrine HCl 120 mg 120 mg PO Q12H PRN Congestion 12/11/23 12/11/23 Unknown History tablet,extended release sildenafil 100 mg tablet 50 - 100 mg PO DAILY PRN Erectile 12/11/23 12/11/23 Unknown History Dysfunction terbinafine HCl 250 mg tablet 250 mg PO DAILY 12/11/23 12/11/23 12/10/23 History Allergies Allergy/AdvReac Type Severity Reaction Status Date / Time morphine Allergy ADR-Fatigue Verified 02/13/23 09:33 d Current Medications Generic Name Dose Route Start Last Admin Trade Name Melchorq PRN Reason Stop Dose Admin Heparin Sodium (Porcine) 5,000 unit 12/11/23 13:00 12/11/23 13:47 Heparin 5,000 Unit/Ml Inj 1 Ml SUBCUT 5,000 unit Q12H JOOA Administration Sodium Chloride 1,000 mls @ 125 mls/hr 12/11/23 13:00 12/11/23 15:12 Sodium Chloride 0.9% IV 125 mls/hr .Q8H JOAO Administration Pantoprazole Sodium 40 mg 12/11/23 13:00 12/11/23 13:47 Pantoprazole 40 Mg Sdv IVP 40 mg Q24H JOAO Administration PFSH Acute 2 PFSH: Social History Smoking and tobacco/nicotine status: never used tobacco/nicotine Alcohol intake: current Alcohol intake frequency: holidays/special occasions only Vitals/I&O/Wt Last Vital Signs Temp 98.7 F 12/11/23 09:56 Pulse 68 12/11/23 16:04 Resp 18 12/11/23 09:56 BP 126/69 12/11/23 16:04 Pulse Ox 99 12/11/23 16:04 O2 Del Method Room Air 12/11/23 15:09 Weight last 48 hrs Weight 220 lb Physical Exam 2 Narrative: General : Patient is well developed , no acute distress, oriented x3 Head : Normal cephalic, a-traumatic. Ears : Pinnae and external canal are normal. Hearing is normal. Eyes : PERRLA, Sclera and injection are normal. No conjunctival discharge. Nose : Mucous membranes are without erythema. Throat : buccal mucosa is normal, gums are without significant recession or hypertrophy. Lungs : Equal chest rise bilaterally, no use of accessory muscles, trachea is midline. Cor : Rate and rhythm are normal. Abdomen : Soft, distended, tender to palpation in the left lower quadrant and periumbilically, no g/r/m Extremities : No edema, no cyanosis or clubbing, dorsalis pedis pulses are present bilaterally, non-tender to palpation of calves. Upper extremities are normal bilaterally. Back : non-tender to palpation, no CVA tenderness. Neuro : CN II - XII intact, Upper and lower extremities have equal and full strength Data 12/11/23 09:53 12/11/23 09:53 Micro: Microbiology 12/11/23 14:16 Blood Culture - Preliminary Blood SPECIMEN COLLECTED 12/11/23 14:12 Blood Culture - Preliminary Blood SPECIMEN COLLECTED A&P Assessment and plan (1) Diverticulitis of colon with perforation: (2) Abnormal CT scan, small bowel: (3) History of pancreatitis: Plan IV antibiotics N.p.o. IV fluids Once his abdominal pain improves I will advance him to a clear liquid diet If he worsens he will require an exploratory laparotomy with Beba procedure If he progresses nonsurgically, he will require a colonoscopy in 4 to 6 weeks and it is recommended that he then gets an elective sigmoidectomy Medical management per hospitalist Coding Level of Care Code 53964 Diagnoses Diverticulitis of colon with perforation K57.[address] scan, small bowel R93.3 History of pancreatitis Z87.19
[2023-12-11] MEDS: HYDROmorphone 1 mg/mL INJ 1 mL 0.5 MG IVP ×2 (18:20→23:14)
[2023-12-12] VITALS (8 sets, daily range): BP systolic 99–130; BP diastolic 56–69; PULSE 71–89; RESP 16–18; TEMP 37–37.6; O2SAT 91–94
[2023-12-12] MEDS: heparin 5,000 unit/mL INJ 1 mL 5000 UNIT SUBCUT ×2 (00:57→12:40)
[2023-12-12] MEDS: piperacillin-tazobactam 3.375 GM in sodium chloride 0.9% (plus) 50 ML IV ×3 (03:53→19:36)
[2023-12-12] MEDS: HYDROmorphone 1 mg/mL INJ 1 mL 0.5 MG IVP ×3 (05:54→20:46)
[2023-12-12] MEDS: sodium chloride 0.9% 1,000 ML 125 ML IV ×3 (06:16→20:41)
[2023-12-12] MEDS: pantoprazole 40 mg SDV IVP (12:40)
[2023-12-12 13:26] LABS: Basophils % 0.2 %; Eosinophils # 0.1 10^3/uL (0.0-0.8); Eosinophils % 0.6 %; Hematocrit 37.8 % (37-53); Lymphocytes # 1.3 10^3/uL (0.8-4.8); Lymphocytes % 11.1 %; Mean Corpuscular HGB Conc 32.8 g/dL (30-55); Mean Corpuscular Volume 91.5 fl (82-101); Monocytes # 1.1 10^3/uL (0.2-0.9); Monocytes % 9.2 %; Neutrophils # 9.42 10^3/uL (1.8-7.7); Neutrophils % 78.5 %; Nucleated Red Blood Cells % 0 %; Platelet Count 152 10^3/cmm (157-399); Red Blood Count 4.13 10^6/uL (3.85-5.65); Red Cell Distribution Width 13.2 % (12.1-15.1); White Blood Count 11.99 10^3/uL (3.29-11.43)
[2023-12-12 13:43] LABS: Blood Urea Nitrogen 14 mg/dL (8-23); Calcium 8.1 mg/dL (8.5-10.5); Carbon Dioxide 18 mmol/L (22-29); Chloride 105 mmol/L (98-107); Creatinine Clr Calc Pharmacy 113.8642; Glomerular Filtration Rate 86.1 mL/min (90-130); Glucose 92 mg/dL (65-115); Osmolality Calculated 278 mOsm/kg (285-295); Sodium 134 mmol/L (136-145)
--- NOTE | 2023-12-12 17:20 | P.PN_ITS ---
Subjective 2 Subjective: Patient seen and examined. His pain has improved. He is hungry Vitals/I&O/Wt Last Vital Signs Temp 99.6 F 12/12/23 15:35 Pulse 78 12/12/23 15:35 Resp 17 12/12/23 15:35 BP 116/69 12/12/23 15:35 Pulse Ox 93 12/12/23 15:35 O2 Del Method Room Air 12/12/23 15:35 12/12/23 12/12/23 12/12/23 06:59 14:59 22:59 Intake Total 2049 879.167 / 879.167 50 / 929.167 Balance 2049 879.167 / 879.167 50 / 929.167 Weight last 48 hrs Weight 236 lb 8 oz Weight 220 lb Physical Exam 2 Narrative: General: No acute distress, awake alert and oriented x 3 Abdomen: Soft, mildly distended, improved tenderness to left lower quadrant and periumbilically without guarding or rebound Data 12/12/23 13:17 12/12/23 13:17 Micro: Microbiology 12/11/23 14:16 Blood Culture - Preliminary Blood NEGATIVE TO DATE 12/11/23 14:12 Blood Culture - Preliminary Blood NEGATIVE TO DATE A&P Assessment and plan (1) Diverticulitis of colon with perforation: (2) Abnormal CT scan, small bowel: (3) History of pancreatitis: Plan IV antibiotics Clear liquid diet IV fluids Once his abdominal pain improves I will advance him to a full liquid diet He requires a minimum of 48 hours of IV antibiotics and a complete antibiotic course of 14 days, typically completed at home with Augmentin If he worsens he will require an exploratory laparotomy with Beba procedure If he progresses nonsurgically, he will require a colonoscopy in 4 to 6 weeks and it is recommended that he then gets an elective sigmoidectomy Medical management per hospitalist Attestations 2 Medical Necessity Statement*: Per primary Coding Level of Care Code 60711 Diagnoses Diverticulitis of colon with perforation K57.[address] scan, small bowel R93.3 History of pancreatitis Z87.19
--- NOTE | 2023-12-12 17:25 | PC.NURSE ---
Pt walking halls multiple times throughout this shift. Tolerates activity well.
--- NOTE | 2023-12-12 18:12 | P.PN_ITS ---
Subjective 2 Subjective: Patient reports abdominal pain has improved. He denies pain at rest. He does have some pain with exertion. His diet has been advanced and he is tolerating limited liquid intake. Denies nausea or vomiting. Denies fevers or chills. Is been ambulating around the unit. Family is bedside and very supportive. Vitals/I&O/Wt Last Vital Signs Temp 99.6 F 12/12/23 15:35 Pulse 78 12/12/23 15:35 Resp 17 12/12/23 15:35 BP 116/69 12/12/23 15:35 Pulse Ox 93 12/12/23 15:35 O2 Del Method Room Air 12/12/23 15:35 12/12/23 12/12/23 12/12/23 06:59 14:59 22:59 Intake Total 2049 879.167 / 879.167 290 / 1169.167 Balance 2049 879.167 / 879.167 290 / 1169.167 Weight last 48 hrs Weight 107.275 kg Weight 99.79 kg Physical Exam 2 Narrative: General: Patient is awake and alert. Head: Normocephalic. Atraumatic. EOM intact. Neck: No JVD. Cardiovascular: RRR. No gallops. No murmurs. No peripheral edema. Lungs: Clear to auscultation, no use of accessory muscles, no crackles or wheezes. Skin: No jaundice. No rashes. Abdomen: Hypoactive bowel sounds. Slightly tender to palpation in lower quadrants. Not distended. Genito Urinary: Genital exam not performed since complaints not related. Rectal: Rectal exam not performed since no symptoms indicated blood loss. Extremities: No cyanosis or clubbing. Musculoskeletal: 5/5 strength, normal range of motion, no swollen or erythematous joints. Neurological: Moves all 4 extremities. No myoclonus. Data 12/12/23 13:17 12/12/23 13:17 Micro: Microbiology 12/11/23 14:16 Blood Culture - Preliminary Blood NEGATIVE TO DATE 12/11/23 14:12 Blood Culture - Preliminary Blood NEGATIVE TO DATE A&P Assessment and plan (1) Diverticulitis of colon with perforation: (2) History of pancreatitis: (3) Abnormal CT scan, small bowel: (4) Chronic GERD: Plan Acute diverticulitis GERD Chronic back pain Small bowel stricture History of pancreatitis Pancreatic tail fluid collections and subscapular spleen fluid collections -Diet has been advanced to clears, monitor symptomatology -Continue Zosyn -General Surgery following, appreciate recommendations -Analgesics as needed -Antiemetics as needed -Continue PPI- -Will need outpatient colonoscopy -Will need repeat imaging, timing to be determined Full code DVT prophylaxis: Patient is ambulatory. Low risk. Attestations 2 Medical Necessity Statement*: Patient requires ongoing hospitalization for IV antibiotics, general surgery evaluation, serial labs, possibly more imaging, and supportive care. Coding Level of Care Code Acute Code for [facility] Fwd Diagnoses Diverticulitis of colon with perforation K57.20 History of pancreatitis Z87.[address] scan, small bowel R93.3 Chronic GERD K21.9
[2023-12-13] VITALS (9 sets, daily range): BP systolic 107–126; BP diastolic 67–81; PULSE 66–74; RESP 16–18; TEMP 36.8–37.3; O2SAT 92–96
[2023-12-13] MEDS: piperacillin-tazobactam 3.375 GM in sodium chloride 0.9% (plus) 50 ML IV ×3 (03:46→20:15)
[2023-12-13 04:00] LABS: Basophils % 0.1 %; Eosinophils # 0.2 10^3/uL (0.0-0.8); Eosinophils % 1.8 %; Hematocrit 36.1 % (37-53); Lymphocytes # 1.4 10^3/uL (0.8-4.8); Lymphocytes % 15.5 %; Mean Corpuscular Volume 90.9 fl (82-101); Mean Platelet Volume 11.5 fL (7.4-10.4); Monocytes % 10.9 %; Neutrophils # 6.38 10^3/uL (1.8-7.7); Neutrophils % 71.4 %; Nucleated Red Blood Cells % 0 %; Platelet Count 140 10^3/cmm (157-399); Red Blood Count 3.97 10^6/uL (3.85-5.65); Red Cell Distribution Width 13.2 % (12.1-15.1); White Blood Count 8.95 10^3/uL (3.29-11.43)
[2023-12-13 04:31] LABS: Alanine Aminotransferase 18 U/L (0-41); Albumin Level 3.1 g/dL (3.5-5.2); Alkaline Phosphatase 84 U/L (40-130); Anion Gap 16.1 (5-19); Aspartate Amino Transferase 16 U/L (0-40); Blood Urea Nitrogen 10 mg/dL (8-23); Calcium 8.2 mg/dL (8.5-10.5); Carbon Dioxide 18 mmol/L (22-29); Chloride 110 mmol/L (98-107); Creatinine Clr Calc Pharmacy 128.0972; Globulin 2.7 g/dL (1.3-4.6); Glomerular Filtration Rate 98.6 mL/min (90-130); Glucose 101 mg/dL (65-115); Osmolality Calculated 289 mOsm/kg (285-295); Phosphorus 1.6 mg/dL (2.5-4.5); Potassium 4.1 mmol/L (3.5-5.1); Sodium 140 mmol/L (136-145); Total Bilirubin 1.1 mg/dL (0.15-1.2); Total Protein 5.8 g/dL (6.6-8.7)
[2023-12-13] MEDS: sodium chloride 0.9% 1,000 ML 125 ML IV ×2 (04:34→12:00)
--- NOTE | 2023-12-13 11:21 | P.PN_ITS ---
Subjective 2 Subjective: Patient seen and examined. Pain improved. No nausea or vomiting Vitals/I&O/Wt Last Vital Signs Temp 97.8 F 12/14/23 04:00 Pulse 62 12/14/23 04:00 Resp 17 12/14/23 04:00 BP 100/61 12/14/23 04:00 Pulse Ox 95 12/14/23 04:00 O2 Del Method Room Air 12/14/23 04:00 12/13/23 12/13/23 12/14/23 14:59 22:59 06:59 Intake Total 1099.167 / 1099.167 290 / 1389.167 943.333 / 2332.500 Output Total 500 / 500 520 / 1020 350 / 1370 Balance 599.167 / 599.167 -230 / 369.167 593.333 / 962.500 Weight last 48 hrs Weight 231 lb 4 oz Weight 235 lb 9.6 oz Physical Exam 2 Narrative: General: No acute distress, awake alert and oriented x 3 Abdomen: Soft, mildly distended, improved tenderness to left lower quadrant and periumbilically without guarding or rebound Data 12/14/23 04:39 12/14/23 04:39 A&P Assessment and plan (1) Diverticulitis of colon with perforation: (2) Abnormal CT scan, small bowel: (3) History of pancreatitis: Plan IV antibiotics Full liquid diet IV fluids Once his abdominal pain improves I will advance him to a full liquid diet He requires a minimum of 48 hours of IV antibiotics and a complete antibiotic course of 14 days, typically completed at home with Augmentin If he worsens he will require an exploratory laparotomy with Beba procedure If he progresses nonsurgically, he will require a colonoscopy in 4 to 6 weeks and it is recommended that he then gets an elective sigmoidectomy Medical management per hospitalist Attestations 2 Medical Necessity Statement*: Per primary Coding Level of Care Code 49113 Diagnoses Diverticulitis of colon with perforation K57.[address] scan, small bowel R93.3 History of pancreatitis Z87.19
[2023-12-13] MEDS: pantoprazole 40 mg SDV IVP (12:00)
[2023-12-13] MEDS: HYDROmorphone 1 mg/mL INJ 1 mL 0.5 MG IVP ×2 (15:11→21:43)
[2023-12-13] MEDS: dextrose 5%-sod chloride 0.45% 1,000 ML 100 ML IV (15:11)
--- NOTE | 2023-12-13 16:03 | P.PN_ITS ---
Subjective 2 Subjective: Patient reports oral intake has improved somewhat. He notes that he is not drinking much still. Still on IV fluids. Denies any pain at rest. He does still have pain with exertion but states it has been getting better daily. Denies any nausea or vomiting. Spouse is bedside and has multiple questions. Discussed plan of care. Denies other new complaints. Medications: Reviewed: Yes Vitals/I&O/Wt Last Vital Signs Temp 98.3 F 12/13/23 15:18 Pulse 67 12/13/23 15:18 Resp 17 12/13/23 15:18 BP 126/81 12/13/23 15:18 Pulse Ox 95 12/13/23 15:18 O2 Del Method Room Air 12/13/23 15:18 12/13/23 12/13/23 12/13/23 06:59 14:59 22:59 Intake Total 1000 / 3219.167 1099.167 / 1099.167 Output Total 500 / 500 220 / 720 Balance 1000 / 3219.167 599.167 / 599.167 -220 / 379.167 Weight last 48 hrs Weight 106.866 kg Weight 107.275 kg Physical Exam 2 Narrative: General: Patient is awake and alert. Head: Normocephalic. Atraumatic. EOM intact. Neck: No JVD. Cardiovascular: RRR. No gallops. No murmurs. No peripheral edema. Lungs: Clear to auscultation, no use of accessory muscles, no crackles or wheezes. Skin: No jaundice. No rashes. Abdomen: Hypoactive bowel sounds. Slightly tender to palpation in lower quadrants, improved from prior exam. Not distended. Genito Urinary: Genital exam not performed since complaints not related. Rectal: Rectal exam not performed since no symptoms indicated blood loss. Extremities: No cyanosis or clubbing. Musculoskeletal: No swollen or erythematous joints. Neurological: Moves all 4 extremities. No myoclonus. Data 12/13/23 03:30 12/13/23 03:30 Micro: Microbiology 12/11/23 14:16 Blood Culture - Preliminary Blood NEGATIVE TO DATE 12/11/23 14:12 Blood Culture - Preliminary Blood NEGATIVE TO DATE A&P Assessment and plan (1) Diverticulitis of colon with perforation: (2) History of pancreatitis: (3) Abnormal CT scan, small bowel: (4) Chronic GERD: Plan Acute diverticulitis Chronic back pain Small bowel stricture History of pancreatitis Pancreatic tail fluid collections and subscapular spleen fluid collections -Diet has been advanced to full liquid diet -Continue Zosyn -General Surgery following, appreciate recommendations -Analgesics as needed -Antiemetics as needed -Continue IV fluids -Will need outpatient colonoscopy -Will need repeat imaging as outpatient -Possible discharge in next 24 to 48 hours if he continues to improve GERD -Continue PPI Full code DVT prophylaxis: Patient is ambulatory. Low risk. Attestations 2 Medical Necessity Statement*: Patient requires ongoing hospitalization for IV antibiotics, general surgery evaluation, serial labs, possibly more imaging, and supportive care. Coding Level of Care Code Acute Code for [facility] Fwd Diagnoses Diverticulitis of colon with perforation K57.20 History of pancreatitis Z87.[address] scan, small bowel R93.3 Chronic GERD K21.9
[2023-12-13] MEDS: oxyCODONE 5 mg IR Tab/Cap PO (20:25)
[2023-12-14] VITALS: BP 115/69; PULSE 63; RESP 17; TEMP 36.8; O2SAT 95
[2023-12-14] MEDS: dextrose 5%-sod chloride 0.45% 1,000 ML 100 ML IV ×2 (00:07→09:30)
[2023-12-14 01:56] VITALS: RESP 16
[2023-12-14] MEDS: HYDROmorphone 1 mg/mL INJ 1 mL 0.5 MG IVP (01:56)
[2023-12-14] MEDS: piperacillin-tazobactam 3.375 GM in sodium chloride 0.9% (plus) 50 ML IV (03:24)
[2023-12-14 04:00] VITALS: BP 100/61; PULSE 62; RESP 17; TEMP 36.6; O2SAT 95
[2023-12-14 05:11] LABS: Basophils % 0.2 %; Eosinophils # 0.1 10^3/uL (0.0-0.8); Eosinophils % 1.6 %; Lymphocytes # 0.8 10^3/uL (0.8-4.8); Lymphocytes % 12.3 %; Mean Corpuscular HGB Conc 33.5 g/dL (30-55); Mean Corpuscular Hemoglobin 30.3 pg (27-33); Mean Corpuscular Volume 90.5 fl (82-101); Mean Platelet Volume 11.1 fL (7.4-10.4); Monocytes # 0.7 10^3/uL (0.2-0.9); Monocytes % 11.6 %; Neutrophils % 73.8 %; Nucleated Red Blood Cells % 0 %; Platelet Count 171 10^3/cmm (157-399); Red Blood Count 4.09 10^6/uL (3.85-5.65); White Blood Count 6.36 10^3/uL (3.29-11.43)
[2023-12-14 05:42] LABS: Albumin Level 3.2 g/dL (3.5-5.2); Blood Urea Nitrogen 8 mg/dL (8-23); Calcium 8.6 mg/dL (8.5-10.5); Carbon Dioxide 20 mmol/L (22-29); Chloride 105 mmol/L (98-107); Creatinine Clr Calc Pharmacy 144.8844; Glucose 125 mg/dL (65-115); Magnesium 1.9 mg/dL (1.7-2.3); Phosphorus 2.1 mg/dL (2.5-4.5); Sodium 136 mmol/L (136-145)
[2023-12-14 07:40] VITALS: BP 118/69; PULSE 59; RESP 16; TEMP 36.6; O2SAT 96
--- NOTE | 2023-12-14 08:37 | P.PN_ITS ---
Subjective 2 Subjective: Patient seen and examined. Pain much improved. Tolerating full liquid diet Vitals/I&O/Wt Last Vital Signs Temp 97.9 F 12/14/23 07:40 Pulse 59 L 12/14/23 07:40 Resp 16 12/14/23 07:40 BP 118/69 12/14/23 07:40 Pulse Ox 96 12/14/23 07:40 O2 Del Method Room Air 12/14/23 07:40 12/13/23 12/14/23 12/14/23 22:59 06:59 14:59 Intake Total 290 / 1389.167 943.333 / 2332.500 50 / 50 Output Total 520 / 1020 350 / 1370 Balance -230 / 369.167 593.333 / 962.500 50 / 50 Weight last 48 hrs Weight 231 lb 4 oz Weight 235 lb 9.6 oz Physical Exam 2 Narrative: General: No acute distress, awake alert and oriented x 3 Abdomen: Soft, mildly distended, improved tenderness to left lower quadrant and periumbilically without guarding or rebound Data 12/14/23 04:39 12/14/23 04:39 A&P Assessment and plan (1) Diverticulitis of colon with perforation: (2) Abnormal CT scan, small bowel: (3) History of pancreatitis: Plan IV antibiotics Soft diet IV fluids Once his abdominal pain improves I will advance him to a full liquid diet He requires a minimum of 48 hours of IV antibiotics and a complete antibiotic course of 14 days, typically completed at home with Augmentin If he worsens he will require an exploratory laparotomy with Beba procedure If he progresses nonsurgically, he will require a colonoscopy in 4 to 6 weeks and it is recommended that he then gets an elective sigmoidectomy Medical management per hospitalist Surgically stable for discharge Follow-up in my office in 2 weeks to plan colonoscopy Attestations 2 Medical Necessity Statement*: Per primary Coding Level of Care Code 76147 Diagnoses Diverticulitis of colon with perforation K57.[address] scan, small bowel R93.3 History of pancreatitis Z87.19
--- NOTE | 2023-12-14 10:48 | PM.DCS ---
Discharge Providers Date of Admission: 12/11/23 16:23 Date of Discharge: December 14, 2023 Attending Provider at Admission: Lata Rojas MD Attending Provider at Discharge: Lata Rojas MD Primary Care Provider: AMI Krishnamurthy Diagnoses at Discharge Discharge Diagnosis (1) Diverticulitis of colon with perforation: Status: Acute (2) Abnormal CT scan, small bowel: Status: Acute (3) History of pancreatitis: Status: Acute Reason for Visit Reason for Visit: RT abd pain Hospital Course Hospital Course Patient was admitted for diverticulitis. Please see H&P for details. There was micro perforation that was contained. Managed conservatively with IV antibiotics. At time of discharge was discharged on oral antibiotics for 2 weeks to follow-up with general surgery as an outpatient. Patient advised to follow-up with general surgery outpatient for a colonoscopy in 6 weeks and potentially a sigmoidectomy thereafter. Tolerating diet and stable for discharge. Physical Exam Narrative: General: Alert oriented x3, HEENT: Normocephalic, atraumatic, EOMI, breathing room air. Cardio: Regular rate rhythm, normal S1-S2, Respiratory: Good bilateral air entry, no wheezes no rhonchi appreciated GI: Abdomen soft, non tender, nondistended, bowel sounds + Behavior: Appropriate and cooperative Extremities: No edema bilateral extremity. Discharge Data Studies Completed and Pending Completed Studies During Hospitalization Category Date Time Status CT abdomen pelvis w con* [id number] Urgent Cat Scan 12/11/23 09:55 Completed Pending at discharge Category Date Time Status Blood Culture Routine Lab 12/11/23 14:16 Results Radiology Impressions Abdomen/Pelvis CT 12/11/23 09:55 IMPRESSION: 1. Acute distal descending colon and sigmoid diverticulitis with perforation. There are numerous extraluminal foci of air contained within the fat surrounding the sigmoid colon. No abscess at this time. Significant pericolonic fat stranding and inflammation. 2. Additional small bowel stricture in the mid jejunum with spiculation. This will need to be further evaluated for possible neoplasm or inflammatory stricture. If this is not evaluated surgically recommend follow-up CT with IV and oral contrast in 2 to 3 months. 3. Fluid collections associated with the pancreatic tail and subcapsular spleen. 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 No adjacent inflammation. No prior studies documenting pancreatitis. These can also be reevaluated in 2 to 3-month follow-up CT for the jejunal stricture. 4. Prior cholecystectomy. Laboratory Results WBC 6.36 10^3/uL (3.29-11.43) 12/14/23 04:39 RBC 4.09 10^6/uL (3.85-5.65) 12/14/23 04:39 Hgb 12.40 g/dL (11.27-16.99) 12/14/23 04:39 Hct 37.0 % (37-53) 12/14/23 04:39 MCV 90.5 fl (82-101) 12/14/23 04:39 MCH 30.3 pg (27-33) 12/14/23 04:39 MCHC 33.5 g/dL (30-55) 12/14/23 04:39 RDW 13.0 % (12.1-15.1) 12/14/23 04:39 Plt Count 171 10^3/cmm (157-399) 12/14/23 04:39 MPV 11.1 fL (7.4-10.4) H 12/14/23 04:39 Neut % (Auto) 73.8 % 12/14/23 04:39 Lymph % (Auto) 12.3 % 12/14/23 04:39 [place] % (Auto) 11.6 % 12/14/23 04:39 Eos % (Auto) 1.6 % 12/14/23 04:39 Baso % (Auto) 0.2 % 12/14/23 04:39 Neut # (Auto) 4.70 10^3/uL (1.8-7.7) 12/14/23 04:39 Lymph # (Auto) 0.8 10^3/uL (0.8-4.8) 12/14/23 04:39 [place] # (Auto) 0.7 10^3/uL (0.2-0.9) 12/14/23 04:39 Eos # (Auto) 0.1 10^3/uL (0.0-0.8) 12/14/23 04:39 Baso # (Auto) 0.0 10^3/uL (0.0-0.1) 12/14/23 04:39 Nucleated RBC % (auto) 0 % 12/14/23 04:39 Nucleated RBCs # 0.0 /100WBC 12/14/23 04:39 Sodium 136 mmol/L (136-145) 12/14/23 04:39 Potassium 4.0 mmol/L (3.5-5.1) 12/14/23 04:39 Chloride 105 mmol/L (98-107) 12/14/23 04:39 Carbon Dioxide 20 mmol/L (22-29) L 12/14/23 04:39 Anion Gap 15.0 (5-19) 12/14/23 04:39 BUN 8 mg/dL (8-23) 12/14/23 04:39 Creatinine 0.7 mg/dL (0.7-1.2) 12/14/23 04:39 GFR Calculation 115.0 mL/min (90-130) 12/14/23 04:39 Glucose 125 mg/dL (65-115) H 12/14/23 04:39 Calculated Osmolality 289 mOsm/kg (285-295) 12/13/23 03:30 Lactic Acid 1.3 mmol/L (0.5-2.2) 12/11/23 14:12 Calcium 8.6 mg/dL (8.5-10.5) 12/14/23 04:39 Phosphorus 2.1 mg/dL (2.5-4.5) L 12/14/23 04:39 Magnesium 1.9 mg/dL (1.7-2.3) 12/14/23 04:39 Total Bilirubin 1.1 mg/dL (0.15-1.2) 12/13/23 03:30 AST 16 U/L (0-40) 12/13/23 03:30 ALT 18 U/L (0-41) 12/13/23 03:30 Alkaline Phosphatase 84 U/L (40-130) 12/13/23 03:30 Total Protein 5.8 g/dL (6.6-8.7) L 12/13/23 03:30 Albumin 3.2 g/dL (3.5-5.2) L 12/14/23 04:39 Globulin 2.7 g/dL (1.3-4.6) 12/13/23 03:30 Lipase 20 U/L (13-60) 12/11/23 09:53 Procalcitonin 0.10 ng/mL (0-0.5) 12/11/23 14:12 Urine Color Dark yellow (Yellow) A 12/11/23 09:44 Urine Appearance Clear (CLEAR) 12/11/23 09:44 Urine pH 7.0 (5-7) 12/11/23 09:44 Ur Specific [place] 1.036 (1.005-1.030) H 12/11/23 09:44 Urine Protein 1+ (Negative) A 12/11/23 09:44 Urine Glucose (UA) Negative (Normal) 12/11/23 09:44 Urine Ketones Trace (Negative) 12/11/23 09:44 Urine Blood Negative (Negative) 12/11/23 09:44 Urine Nitrate Negative (Negative) 12/11/23 09:44 Urine Bilirubin 1+ (Negative) H 12/11/23 09:44 Urine Urobilinogen 1.0 mg/dL (Negative) 12/11/23 09:44 Ur Leukocyte Esterase Trace (Negative) A 12/11/23 09:44 Urine RBC 5-10 /hpf (0-2) H 12/11/23 09:44 Urine WBC Rare /hpf (0-5) 12/11/23 09:44 Ur Squamous Epith Cells 0-4 /hpf (0-5) H 12/11/23 09:44 Amorphous Sediment Not Reportable 12/11/23 09:44 Urine Bacteria R /hpf (NONE) 12/11/23 09:44 Vitals Last Vital Signs Temp 97.9 F 12/14/23 07:40 Pulse 59 L 12/14/23 07:40 Resp 16 12/14/23 07:40 BP 118/69 12/14/23 07:40 Pulse Ox 96 12/14/23 07:40 O2 Del Method Room Air 12/14/23 07:40 Discharge Plan Discharge Patient Disposition: Home Condition: Stable Prescriptions: New amoxicillin-pot clavulanate 875-125 mg tablet 1 tab PO BID Qty: 22 0RF Continued omeprazole 20 mg capsule,delayed release(DR/EC) 20 mg PO DAILY lovastatin 20 mg tablet 20 mg PO DAILY pseudoephedrine HCl 120 mg tablet extended release 120 mg PO Q12H PRN (Reason: Congestion) acetaminophen 500 mg Tablet 1,000 mg PO Q6H PRN (Reason: Pain) Held sildenafil 100 mg tablet 50 - 100 mg PO DAILY PRN (Reason: Erectile Dysfunction) Hold Instructions: see pcp terbinafine HCl 250 mg tablet 250 mg PO DAILY Hold Instructions: see pcp naproxen 500 mg tablet 500 mg PO BID Hold Instructions: see pcp Discharge Orders: Discharge Order (Routine); Ordered 12/14/23 Ordered By: Lata Rojas Referrals: Raúl Rand DO [Physician] - 12/28/23 8:20 am () Anne Rosas FNP [Primary Care Provider] - 12/17/23 11:00 am Discharge Diet: GI Soft Discharge Activity: Resume usual activity Patient Instructions: Amoxicillin/Clavulanate Potassium (By mouth) (Augmentin, Augmentin..., Diverticulitis (DC), Opioid Safety Discharge Attestations Time Spent in Discharge Care*: greater than 30 min Quality Metrics Clinical Quality Measures [ No reported AMI, CVA or VTE this stay] Coding Level of Care Code Acute Code for [facility] Fwd Diagnoses Diverticulitis of colon with perforation K57.[address] scan, small bowel R93.3 History of pancreatitis Z87.19
[2023-12-14 11:20] VITALS: BP 113/62; PULSE 62; RESP 15; TEMP 36.9; O2SAT 97
[2023-12-14 13:18] VITALS: BP 113/62; PULSE 62; RESP 15; TEMP 36.9; O2SAT 97
== END 2023-12-14 12:30 | disposition home or self-care (01) | DRG 392 ==
LOC: ER 12:45 → MEDSURG 16:24
PROVIDERS: Internal Medicine; Surgery; Admitting Provider Internal Medicine; Emergency Provider Physician Assistant; PCP Nurse Practitioner Family; Visit Provider Internal Medicine
DX: K57.20 Diverticulitis of large intestine with perforation and abscess without bleeding (principal); K56.699 Other intestinal obstruction unspecified as to partial versus complete obstruction; K86.3 Pseudocyst of pancreas; G89.29 Other chronic pain; M54.9 Dorsalgia, unspecified; K21.9 Gastro-esophageal reflux disease without esophagitis; Z86.39 Personal history of other endocrine, nutritional and metabolic disease
CPT/HCPCS: 36415; 74177; 80048; 80053; 80069; 81003; 81015; 83605; 83690; 83735; 84100; 84145; 85025; 87040; 94664; 96365; 96372; 96375; 99285; J1170; J1644; J1885; J2405; J2470; J2543; J7030; J7799

== ENCOUNTER 2024-02-03 07:51 | Day surgery (SDC) | payer SELFPAY ==
[2024-02-03 08:07] VITALS: BP 116/68; PULSE 77; RESP 16; TEMP 36.2; O2SAT 95; BMI 26.9
[2024-02-03] MEDS: sodium chloride 0.9% 1,000 ML 30 ML IV (08:24)
--- NOTE | 2024-02-03 08:42 | ANES.PREANE2 ---
Pre-Anesthetic Assessment Height/Weight: Height 6 ft 2 in Weight 210 lb Temp Pulse Resp BP Pulse Ox O2 Del Method 97.1 F L 77 16 116/68 95 Room Air 02/03/24 08:07 02/03/24 08:07 02/03/24 08:07 02/03/24 08:07 02/03/24 08:07 02/03/24 08:07 Preop Diagnosis: Screening colonoscopy Operation Date: 02/03/24 09:00 Proposed Procedures p Colonoscopy 05926, G0105, K57.20(Not Applicable) - Raúl Rand, DO Was Beta Angely taken within 24 hours: N/A Was Clonidine taken within 24 hours: N/A Last intake: Intake Last Liquid Date 02/02/24 Last Liquid Time 21:00 Last Solid Date 02/01/24 Last Solid Time 21:30 Social No alcohol and No tobacco Exam alert, oriented x 3, clear to auscultation bilaterally and regular rate & rhythm Airway Submandibular: within normal limits Cervical ROM: within normal limits Mallampati: Class III Dentition: full Anesthetic Plan ASA status: 2 Anesthesia: MAC Other: No prior issues with anesthesia Completed bowel prep History of GERD on omeprazole Patient recently had a bout of diarrhea for reticulitis, completed 3 rounds of antibiotics No systemic symptoms currently Denies any pulmonary issues Labs reviewed and acceptable for procedure METs greater than 4 Plan for MAC anesthetic Medications/Allergies Home Medications Medication Instructions Recorded Confirmed Last Taken Type omeprazole 20 mg capsule,delayed 20 mg PO DAILY 08/11/22 02/03/24 02/01/24 History release lovastatin 20 mg tablet 20 mg PO DAILY 09/09/22 02/03/24 02/01/24 History acetaminophen 500 mg tablet 1,000 mg PO Q6H PRN Pain 12/11/23 02/03/24 12/11/23 History naproxen 500 mg tablet 500 mg PO BID 12/11/23 02/03/24 12/10/23 History pseudoephedrine HCl 120 mg 120 mg PO Q12H PRN Congestion 12/11/23 02/03/24 02/01/24 History tablet,extended release sildenafil 100 mg tablet 50 - 100 mg PO DAILY PRN Erectile 12/11/23 02/03/24 Unknown History Dysfunction Allergies Allergy/AdvReac Type Severity Reaction Status Date / Time morphine Allergy ADR-Fatigue Verified 09/23/24 08:29 d Current Medications Generic Name Dose Route Start Last Admin Trade Name Freq PRN Reason Stop Dose Admin Sodium Chloride 1,000 mls @ 30 mls/hr 02/03/24 08:00 02/03/24 08:24 Sodium Chloride 0.9% IV 02/04/24 07:59 30 mls/hr .Q24H JOAO Administration PFSH Anesthesia Surgical History (Updated 12/28/23 @ 09:17 by Raúl Rand DO) Hx laparoscopic cholecystectomy Social History Smoking and tobacco/nicotine status: never used tobacco/nicotine Alcohol intake: current Alcohol intake frequency: holidays/special occasions only Data Anesthesia Cardiac Studies: No Data to Display
--- NOTE | 2024-02-03 09:26 | P.HP_ITS ---
Providers/Chief Complaint Primary Care Provider: AMI Krishnamurthy Chief Complaint: K57.20 History of Present Illness Fortino Espino is a 58 year old male Review of Systems General: Reports: 10 or more systems reviewed and unremarkable except in HPI and below Medications/Allergies Home Medications Medication Instructions Recorded Confirmed Last Taken Type omeprazole 20 mg capsule,delayed 20 mg PO DAILY 08/11/22 02/03/24 02/01/24 History release lovastatin 20 mg tablet 20 mg PO DAILY 09/09/22 02/03/24 02/01/24 History acetaminophen 500 mg tablet 1,000 mg PO Q6H PRN Pain 12/11/23 02/03/24 12/11/23 History naproxen 500 mg tablet 500 mg PO BID 12/11/23 02/03/24 12/10/23 History pseudoephedrine HCl 120 mg 120 mg PO Q12H PRN Congestion 12/11/23 02/03/24 02/01/24 History tablet,extended release sildenafil 100 mg tablet 50 - 100 mg PO DAILY PRN Erectile 12/11/23 02/03/24 Unknown History Dysfunction Allergies Allergy/AdvReac Type Severity Reaction Status Date / Time morphine Allergy ADR-Fatigue Verified 12/28/23 08:29 d PFSH Acute PFSH: Surgical History Hx laparoscopic cholecystectomy Social History Smoking and tobacco/nicotine status: never used tobacco/nicotine Alcohol intake: current Alcohol intake frequency: holidays/special occasions only Vitals/I&O/Wt Last Vital Signs Temp 97.1 F L 02/03/24 08:07 Pulse 77 02/03/24 08:07 Resp 16 02/03/24 08:07 BP 116/68 02/03/24 08:07 Pulse Ox 95 02/03/24 08:07 O2 Del Method Room Air 02/03/24 08:07 Weight last 48 hrs Weight 210 lb A&P Assessment and plan (1) Diverticulitis of colon with perforation: Plan Colonoscopy Attestations Medical Necessity Statement*: Home Coding Level of Care Code Acute Code for [facility] Fw Diagnoses Diverticulitis of colon with perforation K57.20
[2024-02-03 09:46] VITALS: BP 110/61; PULSE 62; RESP 14; TEMP 36.1; O2SAT 98
[2024-02-03 09:48] VITALS: BP 100/62; PULSE 67; RESP 18; O2SAT 93
[2024-02-03 09:57] VITALS: BP 106/61; PULSE 69; RESP 18; O2SAT 96
--- NOTE | 2024-02-03 10:30 | ANE.PACU2 ---
Inpatient post-anesthesia follow up: Airway intact: Yes Vital signs: Temperature 97.0 F Pulse Rate 69 Respiratory Rate 18 Blood Pressure 106/61 Pulse Oximetry 96 Oxygen Delivery Me thod Room Air Oxygen Flow Rate Fraction of Inspir ed Oxygen Hydration adequate: Yes Nausea and vomiting: No Pain level: 1 Mental status: Baseline
== END 2024-02-03 10:30 | disposition home or self-care (01) ==
PROVIDERS: PCP Nurse Practitioner Family; Visit Provider Surgery
PROC: 0DJD8ZZ Inspection of Lower Intestinal Tract, Via Natural or Artificial Opening Endoscopic (ICD-10-PCS; CPT 45378; principal; 2024-02-03 09:00)
DX: K57.20 Diverticulitis of large intestine with perforation and abscess without bleeding (principal); K64.8 Other hemorrhoids; K57.30 Diverticulosis of large intestine without perforation or abscess without bleeding; K51.40 Inflammatory polyps of colon without complications; K21.9 Gastro-esophageal reflux disease without esophagitis
CPT/HCPCS: 45385; 88305; J7030